=== PATIENT | male | born 1995 ===

== ENCOUNTER 2016-10-02 21:30 | Emergency (ER) | payer OTHER ==
[2016-10-03] MEDS ORDERED: DIPHTH,PERTUSS(ACELL),TET VAC 0.5 ML VIAL IM V ONE (01:37)
== END 2016-10-03 02:32 | disposition home or self-care (01) ==
LOC: ED 21:30
DX: S61.211A Laceration without foreign body of left index finger without damage to nail, initial encounter (principal); S61.213A Laceration without foreign body of left middle finger without damage to nail, initial encounter; Z23 Encounter for immunization; W45.8XXA Other foreign body or object entering through skin, initial encounter; Y93.E9 Activity, other interior property and clothing maintenance; Y92.009 Unspecified place in unspecified non-institutional (private) residence as the place of occurrence of the external cause